=== PATIENT | female | born 1980 | race Two or more races ===

== ENCOUNTER → 2022-03-25 | Outpatient (CLI) | payer MEDICAID ==
[2022-03-25 09:32] LABS: Basophils # (auto) 0.1 10 ^3/uL (0-0.2); Basophils % (auto) 0.7 % (0.0-2.0); Eosinophils # (auto) 0.1 10 ^3/uL (0-0.8); Eosinophils % (auto) 1.2 % (0.0-7.0); Hematocrit 42.9 % (36.0-46.0); Hemoglobin 14.4 g/dL (12.2-16.2); Lymphocytes # (auto) 2.8 10 ^3/uL (0.4-5.4); Lymphocytes % (auto) 27.7 % (10.0-50.0); Mean Corpuscular Hemoglobin 29.6 pg (28.0-32.0); Mean Corpuscular Hgb Conc. 33.7 g/dL (32.0-36.0); Mean Corpuscular Volume 87.8 fL (80.0-100.0); Monocytes # (auto) 0.5 10 ^3/uL (0-1.3); Monocytes % (auto) 4.9 % (0.0-12.0); Neutrophils # (auto) 6.6 10 ^3/uL (1.6-8.6); Neutrophils % (auto) 65.5 % (37.0-80.0); Red Blood Cells 4.89 10^6/uL (4.0-5.20); Red Cell Distribution Width 13.4 % (11.8-14.3); White Blood Cell 10.1 10^3/uL (4.4-10.8)
[2022-03-25 09:47] LABS: Urine Bacteria NONE SEEN /hpf (None Seen); Urine Blood Negative /uL (Negative); Urine Mucus FEW (None Seen); Urine Specific Gravity 1.023 (1.001-1.035); Urine WBC 1 /hpf (0 - 5)
[2022-03-25 10:09] LABS: Albumin 3.6 g/dL (3.4-5.0); Calcium 9.4 mg/dL (8.5-10.1); Potassium 4.1 mmol/L (3.5-5.1)
[2022-03-25 10:13] LABS: BUN/Creatinine Ratio 21.2; Bilirubin, Total 1.7 mg/dL (0.2-1.0); Total Protein 8.1 g/dL (6.4-8.2)
== END | disposition home or self-care (01) ==
LOC: LAB 09:11
PROVIDERS: ATTEND Nurse Practitioner
DX: I10 Essential (primary) hypertension (principal); E11.9 Type 2 diabetes mellitus without complications; E78.5 Hyperlipidemia, unspecified
CPT/HCPCS: 36415; 80053; 80061; 81001; 82043; 83036; 84443; 85025

== ENCOUNTER 2023-10-29 16:00 | Emergency (ER) | payer MEDICAID, OTHER ==
[~2023-10-29] VITALS: Ht 160 cm; Wt 107.2 kg
[2023-10-29 17:11] VITALS: BP 110/64; PULSE 90; RESP 18; TEMP 98.2; O2SAT 96
[2023-10-29] MEDS: IBUPROFEN 600 MG TAB PO ONE (17:11)
[2023-10-29] MEDS ORDERED: IBUP1TAB5 PO (17:42)
== END 2023-10-29 17:46 | disposition home or self-care (01) ==
LOC: ER 16:03
DX: S80.12XA Contusion of left lower leg, initial encounter (principal); E11.9 Type 2 diabetes mellitus without complications; E78.5 Hyperlipidemia, unspecified; I10 Essential (primary) hypertension; W22.8XXA Striking against or struck by other objects, initial encounter; Y93.89 Activity, other specified; Y92.89 Other specified places as the place of occurrence of the external cause; Y99.8 Other external cause status
CPT/HCPCS: 73590

== ENCOUNTER 2023-12-21 08:31 | Inpatient (IN) | payer MEDICAID, OTHER ==
[~2023-12-21] VITALS: Ht 149.9 cm; Wt 109.2 kg
[~2023-12-21 08:31] MED LIST: IBUP1TAB5 PO
[2023-12-21 09:22] LABS: Basophils # (auto) 0 10 ^3/uL (0-0.2); Basophils % (auto) 0.2 % (0.0-2.0); Eosinophils # (auto) 0.1 10 ^3/uL (0-0.8); Eosinophils % (auto) 0.8 % (0.0-7.0); Hematocrit 44.7 % (36.0-46.0); Lymphocytes # (auto) 1.7 10 ^3/uL (0.4-5.4); Lymphocytes % (auto) 11.4 % (10.0-50.0); Mean Corpuscular Hemoglobin 30.4 pg (28.0-32.0); Mean Corpuscular Hgb Conc. 33.6 g/dL (32.0-36.0); Mean Corpuscular Volume 90.4 fL (80.0-100.0); Monocytes # (auto) 1.3 10 ^3/uL (0-1.3); Monocytes % (auto) 8.7 % (0.0-12.0); Neutrophils % (auto) 78.9 % (37.0-80.0); Nucleated Red Blood Cells % 0.1 %; Red Blood Cells 4.95 10^6/uL (4.0-5.20); Red Cell Distribution Width 13.1 % (11.8-14.3); White Blood Cell 15.2 10^3/uL (4.4-10.8)
[2023-12-21 09:41] LABS: Chloride 104 mmol/L (98-107); Potassium 4.1 mmol/L (3.5-5.1); Sodium 137 mmol/L (136-145)
[2023-12-21 09:42] LABS: Anion Gap 8 (5-15); Calcium 9.7 mg/dL (8.7-10.4); Carbon Dioxide 25 mmol/L (20-30)
[2023-12-21 09:47] LABS: BUN/Creatinine Ratio 14.3 (10.0-20.0); Blood Urea Nitrogen 8 mg/dL (9-23); Glucose 119 mg/dL (74-106)
[2023-12-21 10:21] LABS: Urine Bacteria FEW /hpf (None Seen); Urine Blood 3+ /uL (Negative); Urine Clarity Clear (Clear); Urine Mucus FEW (None Seen); Urine Protein, UAD Negative (Negative); Urine Specific Gravity 1.007 (1.001-1.035); Urine Urobilinogen Normal (Negative); Urine WBC 2 /hpf (0 - 5); Urine pH 5.5 (5.0-9.0)
[2023-12-21 10:35] LABS: Urine Color Light-Yellow (Yellow)
[2023-12-21 11:23] VITALS: PULSE 90; RESP 16; O2SAT 94
[2023-12-21] MEDS ORDERED: ONDANSETRON HCL 4 MG/2 ML VIAL IV PRN ×2 (13:00→13:15)
[2023-12-21] MEDS ORDERED: NITROGLYCERIN 0.4 MG SL TAB SL PRN (13:00)
[2023-12-21] MEDS ORDERED: PIPERACILLIN-TAZOB 3.375GM 100 ML IV ONE (13:00)
[2023-12-21] MEDS ORDERED: DEXTROSE (50%) 50ML SYRG IV PRN (13:00)
[2023-12-21] MEDS ORDERED: DOCUSATE SOD 100 MG CAP PO PRN (13:00)
[2023-12-21 13:28] LABS: INR 0.93 (0.9-1.15); Prothrombin Time 9.9 sec (9.3-11.8)
[2023-12-21] MEDS: SODIUM CHLORIDE 0.9% 1,000 ML IV SCH (13:31)
[2023-12-21] MEDS: PIPERACILLIN-TAZOB 3.375GM 100 ML IV ONE (14:10)
[2023-12-21 17:00] VITALS: BP 110/82; PULSE 98; RESP 18; TEMP 99.2; O2SAT 98
[2023-12-21] MEDS: ACCU-CHEK COMFORT CURVE STRIP VI SCH (17:13)
[2023-12-21] MEDS: InsuLIN REG 1unit/0.01ml Soln (100units/ml) SC SCH (17:25)
[2023-12-21] MEDS ORDERED: PIPERACILLIN-TAZOB 3.375GM 100 ML IV SCH (18:00)
[2023-12-21] MEDS ORDERED: DAPA1TAB4 PO (18:14)
[2023-12-21] MEDS ORDERED: LISI2.5T47 PO (18:14)
[2023-12-21] MEDS ORDERED: ATOR10TA52 PO (18:14)
[2023-12-21 21:00] VITALS: BP 109/67; PULSE 107; RESP 18; TEMP 100.3; O2SAT 94
[2023-12-21] MEDS: PIPERACILLIN-TAZOB 3.375GM 100 ML IV SCH (21:20)
[2023-12-21] MEDS ORDERED: MORPHINE SULFATE INJ 2 MG/ml SYRG ONE (21:31)
[2023-12-21] MEDS: MORPHINE SULFATE INJ 2 MG/ml SYRG IV PRN (21:32)
[2023-12-22] VITALS (7 sets, daily range): BP systolic 100–133; BP diastolic 56–86; PULSE 82–101; RESP 18–19; TEMP 98.6–99.7; O2SAT 91–94
[2023-12-22 07:10] LABS: Basophils # (auto) 0 10 ^3/uL (0-0.2); Basophils % (auto) 0.5 % (0.0-2.0); Eosinophils # (auto) 0.1 10 ^3/uL (0-0.8); Eosinophils % (auto) 0.7 % (0.0-7.0); Hematocrit 43.8 % (36.0-46.0); Hemoglobin 14.8 g/dL (12.2-16.2); Lymphocytes # (auto) 1.8 10 ^3/uL (0.4-5.4); Lymphocytes % (auto) 24.4 % (10.0-50.0); Mean Corpuscular Hemoglobin 30.6 pg (28.0-32.0); Mean Corpuscular Hgb Conc. 33.9 g/dL (32.0-36.0); Mean Corpuscular Volume 90.3 fL (80.0-100.0); Monocytes # (auto) 0.9 10 ^3/uL (0-1.3); Monocytes % (auto) 11.5 % (0.0-12.0); Neutrophils # (auto) 4.7 10 ^3/uL (1.6-8.6); Neutrophils % (auto) 62.9 % (37.0-80.0); Red Blood Cells 4.85 10^6/uL (4.0-5.20); Red Cell Distribution Width 12.8 % (11.8-14.3); White Blood Cell 7.5 10^3/uL (4.4-10.8)
[2023-12-22 07:12] LABS: Alanine Aminotransferase 36 U/L (7-40); Albumin 3.8 g/dL (3.2-4.8); Alkaline Phosphatase 38 U/L (46-116); Anion Gap 7 (5-15); Aspartate Aminotransferase 18 U/L (13-40); Bilirubin, Total 1.3 mg/dL (0.2-1.0); Calcium 8.8 mg/dL (8.7-10.4); Carbon Dioxide 27 mmol/L (20-30); Chloride 106 mmol/L (98-107); Glucose 110 mg/dL (74-106); Potassium 3.4 mmol/L (3.5-5.1); Sodium 140 mmol/L (136-145)
[2023-12-22 07:13] LABS: Total Protein 6.6 g/dL (5.7-8.2)
[2023-12-22 07:15] LABS: BUN/Creatinine Ratio 10.2 (10.0-20.0); Blood Urea Nitrogen < 5 mg/dL (9-23)
[2023-12-22] MEDS ORDERED: MORPHINE SULFATE INJ 2 MG/ml SYRG ONE (20:53)
[2023-12-23 05:00] VITALS: BP 118/81; PULSE 87; RESP 20; TEMP 99.7; O2SAT 92
[2023-12-23 06:13] LABS: Basophils # (auto) 0 10 ^3/uL (0-0.2); Basophils % (auto) 0.3 % (0.0-2.0); Eosinophils # (auto) 0.1 10 ^3/uL (0-0.8); Eosinophils % (auto) 0.7 % (0.0-7.0); Hematocrit 43.7 % (36.0-46.0); Hemoglobin 14.6 g/dL (12.2-16.2); Lymphocytes # (auto) 1.9 10 ^3/uL (0.4-5.4); Lymphocytes % (auto) 19.5 % (10.0-50.0); Mean Corpuscular Hemoglobin 30.2 pg (28.0-32.0); Mean Corpuscular Hgb Conc. 33.4 g/dL (32.0-36.0); Mean Corpuscular Volume 90.4 fL (80.0-100.0); Monocytes # (auto) 0.8 10 ^3/uL (0-1.3); Monocytes % (auto) 8.8 % (0.0-12.0); Neutrophils # (auto) 6.8 10 ^3/uL (1.6-8.6); Neutrophils % (auto) 70.7 % (37.0-80.0); Red Blood Cells 4.84 10^6/uL (4.0-5.20); Red Cell Distribution Width 12.8 % (11.8-14.3); White Blood Cell 9.6 10^3/uL (4.4-10.8)
[2023-12-23 06:20] LABS: Anion Gap 9 (5-15); Carbon Dioxide 27 mmol/L (20-30); Chloride 103 mmol/L (98-107); Potassium 3.5 mmol/L (3.5-5.1); Sodium 139 mmol/L (136-145)
[2023-12-23 06:21] LABS: Calcium 8.9 mg/dL (8.7-10.4)
[2023-12-23 06:25] LABS: Glucose 107 mg/dL (74-106)
[2023-12-23 06:26] LABS: BUN/Creatinine Ratio 10.2 (10.0-20.0); Blood Urea Nitrogen < 5 mg/dL (9-23)
[2023-12-23 08:00] VITALS: BP 106/69; PULSE 89; RESP 16; TEMP 98.9; O2SAT 93
[2023-12-23 12:00] VITALS: BP 120/59; PULSE 79; RESP 18; TEMP 98.1; O2SAT 93
[2023-12-23] MEDS ORDERED: AUG875T PO (12:18)
== END 2023-12-23 15:27 | disposition home or self-care (01) | DRG 720 ==
LOC: ER 08:31 → OVERFLOW 13:03 → EAST 13:03
PROVIDERS: ADMIT Nurse Practitioner Family; ATTEND Nurse Practitioner Acute Care
DX: A41.9 Sepsis, unspecified organism (principal); E11.9 Type 2 diabetes mellitus without complications; E66.01 Morbid (severe) obesity due to excess calories; K52.9 Noninfective gastroenteritis and colitis, unspecified; E78.5 Hyperlipidemia, unspecified; E86.0 Dehydration; I10 Essential (primary) hypertension; E87.6 Hypokalemia; N30.00 Acute cystitis without hematuria; Z79.1 Long term (current) use of non-steroidal anti-inflammatories (NSAID); Z79.899 Other long term (current) drug therapy; Z98.891 History of uterine scar from previous surgery; Z68.42 Body mass index [BMI] 45.0-49.9, adult
CPT/HCPCS: 36415; 74176; 80048; 80053; 81001; 82962; 85025; 85610; 86850; 86900; 86901; G0378; J2543

== ENCOUNTER 2024-11-22 16:23 | Emergency (ER) | payer MEDICAID ==
[~2024-11-22] VITALS: Ht 170.2 cm; Wt 109.0 kg
[~2024-11-22 16:23] MED LIST changes: +ATOR10TA52 PO; +AUG875T PO; +DAPA1TAB4 PO; -IBUP1TAB5 PO; +LISI2.5T47 PO; +LOPE1TAB9 PO; +NITR-87 PO; +ONDA-155 PO
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
--- NOTE | 2024-11-22 17:38 | DVH ---
Indication: injury Technique: 2 views left tibia and fibula Comparison: None FINDINGS/IMPRESSION: No radiographic evidence for acute fracture or dislocation. No significant soft tissue edema. No rad iopaque foreign body. [id number] degenerate changes left knee. Achilles enthesopathy.
--- NOTE | 2024-11-22 17:39 | DVH ---
CHEST RADIOGRAPH Indication: injury Technique: Single frontal view of the chest was obtained Comparison: None FINDINGS: The cardiac silhouette is unremarkable. The lungs demonstrate perihilar airspace opacities. The pulmo nary vasculature is prominence. There is no pleural effusion.. There is no pneumothorax. Severe elev ation right hemidiaphragm IMPRESSION: Severe elevation right hemidiaphragm. Correlate to exclude diaphragmatic injury. Perihilar airspace opacities. Pulmonary vasculature prominence
[2024-11-22 19:13] LABS: Anion Gap 10 (5-15); Basophils # (auto) 0 10 ^3/uL (0-0.2); Basophils % (auto) 0.1 % (0.0-2.0); Carbon Dioxide 24 mmol/L (20-31); Chloride 103 mmol/L (98-107); Eosinophils # (auto) 0.2 10 ^3/uL (0-0.8); Eosinophils % (auto) 0.9 % (0.0-7.0); Hemoglobin 14.3 g/dL (12.2-16.2); Lymphocytes # (auto) 2.7 10 ^3/uL (0.4-5.4); Lymphocytes % (auto) 15.4 % (10.0-50.0); Mean Corpuscular Hemoglobin 30.1 pg (28.0-32.0); Mean Corpuscular Hgb Conc. 34.1 g/dL (32.0-36.0); Mean Corpuscular Volume 88.4 fL (80.0-100.0); Monocytes # (auto) 1.1 10 ^3/uL (0-1.3); Monocytes % (auto) 6.1 % (0.0-12.0); Neutrophils # (auto) 13.4 10 ^3/uL (1.6-8.6); Neutrophils % (auto) 77.5 % (37.0-80.0); Platelet Count (auto) 315 10^3/uL (140-450); Potassium 3.8 mmol/L (3.5-5.1); Red Blood Cells 4.74 10^6/uL (4.0-5.20); Sodium 137 mmol/L (136-145); White Blood Cell 17.3 10^3/uL (4.4-10.8)
[2024-11-22 19:14] LABS: Calcium 10.2 mg/dL (8.7-10.4)
[2024-11-22 19:19] LABS: Glucose 101 mg/dL (74-106)
[2024-11-22 19:35] LABS: Blood Urea Nitrogen 9 mg/dL (9-23)
--- NOTE | 2024-11-22 19:58 | DVH ---
Exam: CT CT CHEST/AB/PL W CON- IV ONLY History: r/o diaphragmatic injury Comparison Study: None Technique: Multidetector spiral CT of the abdomen was performed from lung bases to pubic symphysis. Imaging was performed without IV contrast. Axial, coronal and sagittal multiplanar reformats were ob tained from the axial data set by the technologist. Radiation Dose : 1. Abdomen/Pelvis: CTDIvol 25.64 mGy, DLP 1663.38 mGy*cm. Findings: Evaluation of solid organs is limited due to lack of intravenous contrast use. Lungs: Marked elevation of right hemidiaphragm. The lungs are clear. Pleural: No pleural effusion or pneumothorax. Mediastinum/Hilum: No abnormality demonstrated. Heart: Normal heart size. Pericardial effusion. Bones: No acute abnormality demonstrated. Liver: Liver is normal in size. No focal lesions noted. Gallbladder and Biliary Tree: No abnormality demonstrated. Spleen: No abnormality demonstrated. Pancreas: No abnormality demonstrated. Adrenal Glands: No abnormality demonstrated. Kidneys: No abnormality demonstrated. No evidence of renal mass, calculus, or hydroureteronephrosis. Bladder: Poorly distended. Bowel: Stomach appears grossly unremarkable. No abnormally dilated or thick-walled loops of large or small bowel noted. Few scattered left-sided colonic diverticula without evidence of acute diverticuli tis. Appendix appears unremarkable. Ascites: Absent Lymphadenopathy: No evidence of lymphadenopathy. Abdominal Wall and Mesentery: Unremarkable. Vasculature: Unremarkable. Pelvic Organs: Evidence of small uterine fibroids. Musculoskeletal: No aggressive bony lesions or fracture. IMPRESSION: No acute abnormality demonstrated. Marked elevation of right hemidiaphragm. Radiation optimization: All CT scans at this facility use at least one of these dose optimization alie hniques: automated exposure control mA and/or kV adjustment per patient size (includes targeted exam s where dose is matched to clinical indication) or iterative reconstruction.
[2024-11-22] MEDS: IOHEXOL 300 MG/ML 100ML BOTTLE IJ ONE (20:10)
[2024-11-22] MEDS: KETOROLAC TROMETH 30 MG/ML 1ML VIAL IM ONE (20:13)
[2024-11-22] MEDS ORDERED: IBU600T PO (20:15)
[2024-11-22 21:00] VITALS: BP 120/58; PULSE 89; RESP 18; TEMP 98; O2SAT 98
== END 2024-11-22 21:15 | disposition home or self-care (01) ==
LOC: EDBD 16:23 → ER 16:28
DX: S20.01XA Contusion of right breast, initial encounter (principal); S80.812A Abrasion, left lower leg, initial encounter; J98.6 Disorders of diaphragm; E11.9 Type 2 diabetes mellitus without complications; I10 Essential (primary) hypertension; E78.5 Hyperlipidemia, unspecified; I48.91 Unspecified atrial fibrillation; Z98.890 Other specified postprocedural states; Z79.899 Other long term (current) drug therapy; V89.2XXA Person injured in unspecified motor-vehicle accident, traffic, initial encounter; Y93.89 Activity, other specified; Y92.488 Other paved roadways as the place of occurrence of the external cause; Y99.8 Other external cause status
CPT/HCPCS: 36415; 71045; 71260; 73590; 74177; 80048; 85025; 96372; 99285; J1885; Q9967